=== PATIENT | male | born 1985 | race Caucasian/White ===

== ENCOUNTER 2020-10-18 15:45 | Emergency (ER) | payer BC ==
[~2020-10-18] VITALS: Ht 180.3 cm; Wt 88.5 kg
[~2020-10-18 15:45] MED LIST: ADULT ASPIRIN R81 MG PO; COUMADIN5 MG PO; TOPROL XL25 MG PO; WARFARIN SODIUM2 MG PO
== END 2020-10-18 16:28 | disposition home or self-care (01) ==
LOC: ED 15:45
DX: T24.212A Burn of second degree of left thigh, initial encounter (principal); T31.0 Burns involving less than 10% of body surface; X10.0XXA Contact with hot drinks, initial encounter
CPT/HCPCS: 99283

== ENCOUNTER 2020-10-19 22:29 | Emergency (ER) | payer BC ==
[~2020-10-19] VITALS: Ht 180.3 cm; Wt 88.5 kg
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
[2020-10-20] MEDS ORDERED: CYCLOBENZAPRINE10 MG PO (00:52)
[2020-10-20] MEDS ORDERED: HYDROCODON-ACE1 EA10 PO (00:52)
== END 2020-10-20 01:35 | disposition home or self-care (01) ==
LOC: ED 22:29
DX: S39.012A Strain of muscle, fascia and tendon of lower back, initial encounter (principal); X50.9XXA Other and unspecified overexertion or strenuous movements or postures, initial encounter; Z88.0 Allergy status to penicillin; Z79.899 Other long term (current) drug therapy; Z79.82 Long term (current) use of aspirin; Z79.01 Long term (current) use of anticoagulants
CPT/HCPCS: 96374; 96375; 96376; 99283-25; J1170; J2405; J2930